=== PATIENT | male | born 1980 | race Caucasian/White ===

== ENCOUNTER 2025-05-14 21:08 | Emergency (ER) | payer SELFPAY ==
[2025-05-14 21:14] VITALS: BP 126/73; PULSE 82; RESP 17; O2SAT 97; BMI 27.8
[2025-05-14] MEDS: ONDANSETRON 4 MG/2 ML INJ IV (21:29)
[2025-05-14 21:41] LABS: Add Manual Diff / Slide Review NO; Hematocrit 38.4 % (41-53); Hemoglobin 13.1 g/dL (13.5-17.5); Lymphocytes Absolute Auto 3600 /uL (1100-4500); Mean Corpuscular HGB Conc 34.1 % (30-36); Mean Corpuscular Hemoglobin 30.4 PG (26-34); Mean Corpuscular Volume 89.2 fL (80-100); Platelet Count 441 X10^3/uL (150-400)
[2025-05-14 21:50] LABS: Alanine Aminotransferase 19 IU/L (<50); Albumin 4.5 g/dL (3.5-5.0); Albumin Globulin Ratio 1.5 (1.0-2.8); Alkaline Phosphatase 44 U/L (38-126); Blood Urea Nitrogen 15 mg/dL (9-20); Calcium 8.9 mg/dL (8.4-10.2); Carbon Dioxide 24 mmol/L (22-32); Chloride 106 mmol/L (98-107); Estimated Glomerular Filt Rate > 60 mL/min (>60); Globulin 3.1 g/dL (1.7-4.1); Glucose 90 mg/dL (70-99); HEMOLYSIS < 15 (0-50); Lipase 157 U/L (23-300); Potassium 4.2 mmol/L (3.4-5.1); Sodium 139 mmol/L (137-145); Total Protein 7.6 g/dL (6.3-8.2)
--- NOTE | 2025-05-14 21:51 | ED_ITS ---
HPI - Abdominal Pain General Chief Complaint: Abdominal Pain Stated Complaint: LLQ/Middle abdominal pain, has diverticulitis Time Seen by Provider: 05/14/25 21:13 Source: patient Mode of arrival: Ambulatory History of Present Illness HPI narrative: 45-year-old gentleman history of diverticulitis 2 years ago sense of left lower quadrant pain radiating to left groin and left back region along with nausea but no vomiting diarrhea. He did have chicken Bean earlier and did have a bowel movement earlier today. He denies fever, chills, testicular pain, penile discharge, urinary symptoms, sick contacts. He has not taken anything for the pain and nothing makes it better or worse. Other than what is stated 14 point review of system is negative. Related Data Allergies Allergy/AdvReac Type Severity Reaction Status Date / Time No Known Drug Allergies Allergy Verified 05/14/25 21:14 Review of Systems Review of Systems ROS Unobtainable: All systems reviewed & are unremarkable except as noted in HPI and below Patient History Social History Smoking Status: Never smoker Smoking Status: Never smoker Exam Narrative Exam Narrative: GENERAL: [45] year old patient appears stated age. Well-developed patient, in mild distress. HEAD: Atraumatic. Normocephalic. EYES: Pupils equal round and reactive. Extraocular motions intact. No scleral icterus. No injection or drainage. ENT: Nose without bleeding, purulent drainage. Throat without erythema, tonsillar hypertrophy or exudate. Airway patent. NECK: Trachea midline. Non tender CARDIOVASCULAR: Regular rate and rhythm without murmurs, gallops, or rubs. RESPIRATORY: Clear to auscultation. Breath sounds equal bilaterally. No wheezes, rales, or rhonchi. GASTROINTESTINAL: Abdomen soft, LLQ , nondistended. EXTREMITIES: No edema or joint tenderness. BACK: Nontender without deformity or crepitance. No flank tenderness. NEURO: AOx3. SKIN: No rash or erythema of visible areas Initial Vital Signs Initial Vital Signs: Vital Signs Pulse Rate 82 05/14/25 21:14 Respiratory Rate 17 05/14/25 21:14 Blood Pressure 126/73 05/14/25 21:14 Pulse Oximetry 97 05/14/25 21:14 Oxygen Delivery Method Room Air 05/14/25 21:14 Course Orders Ordered: ED Orders 05/14/25 21:25 Complete Blood Count AUTO DIFF Stat Comprehensive Metabolic Panel Stat Lipase Stat EKG-12 Lead Stat 05/14/25 21:51 CT abdomen pelvis w con Stat Ondansetron HCl (Ondansetron 4 Mg/2 Ml Inj) 4 mg IV NOW PRN PRN Reason: Nausea And Vomiting Last Admin: 05/14/25 21:29 Dose: 4 mg Documented By: ELIZABETH Ondansetron HCl (Ondansetron 4 Mg Odt) 4 mg PO NOW PRN PRN Reason: Nausea And Vomiting Discontinued Medications Hydromorphone HCl (Hydromorphone 1 Mg Inj) 1 mg IV NOW ONE Stop: 05/14/25 21:52 Last Admin: 05/14/25 21:59 Dose: 1 mg Documented By: ELIZABETH Hydromorphone HCl (Hydromorphone 1 Mg Inj) 1 mg IV NOW ONE Stop: 05/14/25 22:46 Lactated Ringer's (Lactated Ringers) 1,000 mls @ 1,000 mls/hr IV BOLUS ONE Stop: 05/14/25 22:50 Last Admin: 05/14/25 21:58 Dose: 1,000 mls/hr Documented By: ELIZABETH Vital Signs Vital signs: Vital Signs - 8 hr 05/14/25 21:14 05/14/25 22:00 05/14/25 22:02 Pulse Rate 82 73 75 Respiratory Rate 17 Blood Pressure 126/73 Pulse Oximetry 97 97 97 Oxygen Delivery Method Room Air Room Air 05/14/25 22:02 Pulse Rate Respiratory Rate Blood Pressure 135/73 Pulse Oximetry Oxygen Delivery Method MDM - Abdominal Pain Lab Data 05/14/25 21:25 05/14/25 21:25 Labs: Lab Results 05/14/25 Range/Units 21:25 WBC 17.1 H (4.5-11.0) X10^3/uL RBC 4.31 L (4.5-5.9) X10^6/uL Hgb 13.1 L (13.5-17.5) g/dL Hct 38.4 L (41-53) % MCV 89.2 (80-100) fL MCH 30.4 (26-34) PG MCHC 34.1 (30-36) % RDW 12.9 (11.6-14.8) % Plt Count 441 H (150-400) X10^3/uL Neut % (Auto) 65.4 (50-75) % Lymph % (Auto) 20.9 L (25-40) % [place] % (Auto) 8.7 (3-14) % Eos % (Auto) 4.4 H (2-4) % Baso % (Auto) 0.6 (0-2) % Neut # (Auto) 16534 H (2170-2315) /uL Lymph # (Auto) 3600 (9960-9540) /uL [place] # (Auto) 1500 H (0-900) /uL Eos # (Auto) 800 H (0-450) /uL Baso # (Auto) 100 (0-100) /uL Sodium 139 (137-145) mmol/L Potassium 4.2 (3.4-5.1) mmol/L Chloride 106 (98-107) mmol/L Carbon Dioxide 24 (22-32) mmol/L BUN 15 (9-20) mg/dL Creatinine 1.04 (0.66-1.25) mg/dL Estimated GFR > 60 (>60) mL/min BUN/Creatinine Ratio 14.4 (6-22) Glucose 90 (70-99) mg/dL Calcium 8.9 (8.4-10.2) mg/dL Total Bilirubin 0.3 (0.2-1.3) mg/dL AST 24 (17-59) IU/L ALT 19 (<50) IU/L Alkaline Phosphatase 44 (38-126) U/L Total Protein 7.6 (6.3-8.2) g/dL Albumin 4.5 (3.5-5.0) g/dL Globulin 3.1 (1.7-4.1) g/dL Albumin/Globulin Ratio 1.5 (1.0-2.8) Lipase 157 (23-300) U/L Point of care testing: Urine Dip Bedside Urine Glucose Negative Bedside Urine Bilirubin - Negative Bedside Urine Ketone - Negative Urine Specific [place] 1.015 Bedside Urine Occult Blood - Negative Bedside Urine pH 6 Bedside Urine Protein - Negative Bedside Urine Urobilinogen - Negative Bedside Urine Nitrite - Negative Bedside Urine Leukocytes - Negative Esterase Imaging Data CT scan - abdomen/pelvis: Radiologist's Impression: [address] [address] [address] Scan Report Signed Patient: Harsh Correa MR#: [id number] : 1980 Acct:[id number] Age/Sex: 45 / M Date of Service: 05/14/25 Loc: ED Accession Number: [id number] Procedure: CT abdomen pelvis w con Ordering Provider: Rohan Henderson D.O. PROCEDURE: CT ABDOMEN PELVIS W CON INDICATIONS: abd pain nausea TECHNIQUE: After the administration of intravenous contrast, axial sections acquired from the lung bases to the pubic symphysis. Coronal and sagittal reformats were performed. For radiation dose reduction, the following was used: automated exposure control, adjustment of mA and/or kV according to patient size. COMPARISON: None. FINDINGS: Image quality: Diagnostic. Lower Chest: No significant findings. ABDOMEN: Liver: No solid mass. Gallbladder: No radiopaque gallstones or wall thickening. Biliary ducts: No biliary dilation. Pancreas: No ductal dilation. Spleen: Size is within normal limits. Adrenal Glands: No adrenal nodules. Kidneys and Ureters: No hydronephrosis. No solid mass. No complex renal cystic lesion which requires follow up. Stomach and Bowel: Normal colonic caliber, without significant wall thickening. . Mild hiatal hernia. Appendix is normal. Peritoneum: No abnormal intraperitoneal fluid. No free air. Ventral Wall: Minimal ventral hernia. Abdominal Nodes: No retroperitoneal or mesenteric adenopathy by size criteria. Vessels: Aorta and inferior vena cava are normal in size. PELVIS: Pelvic Organs: Unremarkable. Bladder: No bladder wall thickening, accounting for underdistention. Pelvic Nodes: No enlarged lymph nodes. Miscellaneous: No inguinal hernias are seen. Bones: No aggressive osseous abnormality. IMPRESSION: Mild hiatal hernia. . Appendix is normal. No bowel obstruction. MDM Narrative Medical decision making narrative: Vital signs, nurse triage note, medication list, previous ER visits, and all imaging studies reviewed. CT abdomen pelvis showed mild hiatal hernia, appendix is normal, no bowel obstruction. White count of 17 hemoglobin 13.4. CMP is normal including LFTs and lipase. Differential diagnosis includes cyclic abdominal vomiting syndrome secondary to marijuana use, diverticulitis constipation pancreatitis small-bowel obstruction kidney stone kidney infection. Patient given fluids, toradol, benadry, droperidol, Dilaudid here. Discharge Plan Departure Patient Disposition: Home Clinical Impression: Abdominal pain, acute, left lower quadrant Instructions: DI for Abdominal Pain-Adult Activity Restrictions/Additional Instructions: Return with new or worsening symptoms. Clear liquid diet advance as tolerated. Follow up with PCP next week if no improvement in symptoms. Stand Alone Forms: Patient Portal/API
[2025-05-14] MEDS: LACTATED RINGERS 1,000 ML 1000 ML IV (21:58)
[2025-05-14] MEDS: HYDROMORPHONE 1 MG INJ IV ×2 (21:59→23:16)
[2025-05-14 22:00] VITALS: PULSE 73; O2SAT 97
[2025-05-14 22:02] VITALS: BP 135/73; PULSE 75; O2SAT 97
[2025-05-14 22:31] VITALS: PULSE 74; RESP 18; O2SAT 99
[2025-05-14 23:00] VITALS: PULSE 76; RESP 30; O2SAT 94
[2025-05-14] MEDS: KETOROLAC 30 MG/ML VIAL IV (23:15)
[2025-05-14] MEDS: droPERidol 2.5 MG/ML VIAL IV (23:16)
[2025-05-14] MEDS: diphenhydrAMINE 50 MG/ML VIAL IV (23:16)
[2025-05-14 23:30] VITALS: BP 132/64; PULSE 87; RESP 22; O2SAT 99
== END 2025-05-15 00:06 | disposition home or self-care (01) ==
PROVIDERS: Emergency Provider Family Medicine
DX: R10.32 Left lower quadrant pain (principal)
CPT/HCPCS: 36415; 74177; 80053; 81003; 83690; 85025; 96361; 96374; 96375; 96376; 99284; J1171; J1200; J1790; J1885; J2405; Q9967